=== PATIENT | male | born 1955 | race Caucasian/White ===

== ENCOUNTER 2024-12-31 05:56 | Inpatient (IN) | payer MEDICARE, OTHER ==
[~2024-12-31] VITALS: Ht 170.2 cm; Wt 89.4 kg
[2024-12-31] MEDS ORDERED: ANESTHESIA TRAY IN PYXIS 1 EA TRAY MC ONE (06:58)
[2024-12-31] MEDS ORDERED: dexaMETHasone SOD PHOSPHATE 1 ML ONE (06:58)
[2024-12-31] MEDS ORDERED: VANCOMYCIN 1 GM VIAL ONE (06:58)
[2024-12-31] MEDS ORDERED: LIDOCAINE 2%-EPI 1:100,000 30 ML VIAL ONE ×2 (06:58→09:26)
[2024-12-31] MEDS ORDERED: FENTANYL PF 250MCG/5ML AMPUL ONE (07:13)
[2024-12-31] MEDS ORDERED: ROCURONIUM BROMIDE 50 MG/5 ML ONE (07:14)
[2024-12-31] MEDS ORDERED: OXYMETAZOLINE HCL NASAL SPRAY 30 ML BOTTLE NS ONE (07:20)
[2024-12-31] MEDS ORDERED: LABETALOL HCL IV 100MG VIAL ONE (08:10)
[2024-12-31] MEDS ORDERED: SEVOFLURANE 250 ML BOTTLE IH ONE (08:48)
[2024-12-31] MEDS ORDERED: ONDANSETRON HCL/PF 4 MG/2 ML VIAL IV PRN (11:00)
[2024-12-31] MEDS ORDERED: ROSU20TA2 PO (11:27)
[2024-12-31] MEDS ORDERED: METF-440 PO (11:27)
[2024-12-31] MEDS ORDERED: DRON400T6 PO (11:27)
[2024-12-31] MEDS ORDERED: ASPI-1169 PO (11:27)
[2024-12-31] MEDS ORDERED: FINA5TAB11 PO (11:27)
[2024-12-31] MEDS ORDERED: SACU1TAB PO (11:27)
[2024-12-31] MEDS ORDERED: TAMS-12 PO (11:27)
[2024-12-31] MEDS ORDERED: AMLO5TAB4 PO (11:27)
[2024-12-31] MEDS ORDERED: CARV25TA PO (11:27)
[2024-12-31] MEDS ORDERED: ICOS1CAP PO (11:27)
[2024-12-31] MEDS ORDERED: KETOROLAC TROMETHAMINE INJ 30 MG/ML VIAL IM PRN (11:30)
[2024-12-31] MEDS: IV NS 0.9% 1,000 ML IV PRN (11:36)
[2024-12-31] MEDS ORDERED: MAG HYDROX/AL HYDROX/SIMETH 30 ML UDC PO PRN (16:00)
[2024-12-31] MEDS ORDERED: ONDANSETRON HCL/PF 4 MG/2 ML VIAL IVP PRN (16:00)
[2024-12-31] MEDS ORDERED: Z GUARD REMEDY 4 OZ OINT TP PRN (16:00)
[2024-12-31] MEDS ORDERED: DEXTROSE 50%-WATER 50 ML DISP.SYRIN IV PRN (16:00)
[2024-12-31] MEDS ORDERED: MAGNESIUM HYDROXIDE 30 ML UDC PO PRN (16:00)
[2024-12-31] MEDS: ACETAMINOPHEN 325 MG TABLET PO PRN (16:38)
[2024-12-31] MEDS: BLOOD SUGAR DIAGNOSTIC 1 EACH STRIP IN SCH (16:58)
[2024-12-31 16:59] VITALS: BP 124/74; TEMP 99; O2SAT 97
[2024-12-31] MEDS: INSULIN REGULAR, HUMAN 100 UNIT/ML 3 ML VIAL SQ PRN (16:59)
[2024-12-31] MEDS: AMLODIPINE BESYLATE 5 MG TABLET PO SCH (17:00)
[2024-12-31] MEDS: CARVEDILOL 12.5 MG TABLET PO SCH (17:00)
[2024-12-31] MEDS: ATORVASTATIN 40 MG TABLET PO SCH (17:04)
[2024-12-31] MEDS: SACUBITRIL/VALSARTAN 24/26MG TABLET PO SCH (17:04)
[2024-12-31] MEDS: TAMSULOSIN 0.4 MG CAP.SR.24H PO SCH (17:04)
[2024-12-31] MEDS ORDERED: Medication Not On Formulary EA (Icosapent Ethyl (Vascepa) 1 GM) PO SCH (18:00)
[2024-12-31] MEDS: VANCOMYCIN 1 GM in IV D5W 250ml IV SCH (19:34)
[2024-12-31 20:00] VITALS: BP 127/69; TEMP 98.4; O2SAT 95
[2024-12-31 22:35] VITALS: BP 127/69; TEMP 98.4; O2SAT 95
[2025-01-01 08:00] VITALS: BP 120/65; TEMP 97.7; O2SAT 97
[2025-01-01 08:03] LABS: MAGNESIUM 1.7 mg/dL (1.8-2.4); PHOSPHORUS 2.8 mg/dL (2.5-4.9)
[2025-01-01 08:19] VITALS: BP 120/65
[2025-01-01] MEDS: FINASTERIDE (5 MG) 5 MG TABLET PO SCH (08:19)
[2025-01-01] MEDS: DRONEDARONE HYDROCHLORIDE 400 MG TABLET PO SCH (08:25)
== END 2025-01-01 12:53 | disposition home or self-care (01) | DRG 908 ==
LOC: DS 05:56 → MED 10:49
PROC: 0NSR04Z Reposition Maxilla with Internal Fixation Device, Open Approach (ICD-10-PCS; principal; 2024-12-31)
PROC: 0NSV04Z Reposition Left Mandible with Internal Fixation Device, Open Approach (ICD-10-PCS; 2024-12-31)
PROC: 0NST04Z Reposition Right Mandible with Internal Fixation Device, Open Approach (ICD-10-PCS; 2024-12-31)
PROC: 0NUR07Z Supplement Maxilla with Autologous Tissue Substitute, Open Approach (ICD-10-PCS; 2024-12-31)
PROC: 0N5V0ZZ Destruction of Left Mandible, Open Approach (ICD-10-PCS; 2024-12-31)
PROC: 0N5R0ZZ Destruction of Maxilla, Open Approach (ICD-10-PCS; 2024-12-31)
PROC: 0N5T0ZZ Destruction of Right Mandible, Open Approach (ICD-10-PCS; 2024-12-31)
PROC: 09BQ0ZZ Excision of Right Maxillary Sinus, Open Approach (ICD-10-PCS; 2024-12-31)
PROC: 0CBG0ZZ Excision of Right Submaxillary Gland, Open Approach (ICD-10-PCS; 2024-12-31)
DX: T86.831 Bone graft failure (principal); S02.40CK Maxillary fracture, right side, subsequent encounter for fracture with nonunion; S02.40DK Maxillary fracture, left side, subsequent encounter for fracture with nonunion; S02.609K Fracture of mandible, unspecified, subsequent encounter for fracture with nonunion; M27.2 Inflammatory conditions of jaws; Y92.9 Unspecified place or not applicable; Y83.2 Surgical operation with anastomosis, bypass or graft as the cause of abnormal reaction of the patient, or of later complication, without mention of misadventure at the time of the procedure; X58.XXXD Exposure to other specified factors, subsequent encounter; D16.4 Benign neoplasm of bones of skull and face; D16.5 Benign neoplasm of lower jaw bone; M27.40 Unspecified cyst of jaw; D11.7 Benign neoplasm of other major salivary glands; E11.69 Type 2 diabetes mellitus with other specified complication; I48.91 Unspecified atrial fibrillation; I50.9 Heart failure, unspecified; Z79.82 Long term (current) use of aspirin; Z79.84 Long term (current) use of oral hypoglycemic drugs; Z79.899 Other long term (current) drug therapy; Z88.0 Allergy status to penicillin; Z88.5 Allergy status to narcotic agent; Z88.6 Allergy status to analgesic agent; Z95.810 Presence of automatic (implantable) cardiac defibrillator
CPT/HCPCS: 36415; 82962-TC; 83735-TC; 84100-TC; 87081-TC; 88305-TC; 88311-TC; A4223; A4338; C1713; G0378; J0360; J0461; J1100; J1815; J2704; J3010; J3370; J3490; J7030; J7060

== ENCOUNTER 2025-04-28 08:26 | Inpatient (IN) | payer MEDICARE, OTHER ==
[~2025-04-28] VITALS: Ht 172.7 cm; Wt 88.5 kg
[~2025-04-28 08:26] MED LIST: AMLO5TAB4 PO; ASPI-1169 PO; CARV25TA PO; DRON400T6 PO; FINA5TAB11 PO; ICOS1CAP PO; METF-440 PO; ROSU20TA2 PO; SACU1TAB PO; TAMS-12 PO
[2025-04-28] MEDS ORDERED: dexaMETHasone SOD PHOSPHATE 1 ML ONE (12:30)
[2025-04-28] MEDS ORDERED: LIDOCAINE 2%-EPI 1:100,000 30 ML VIAL ONE (12:30)
[2025-04-28] MEDS ORDERED: VANCOMYCIN 1 GM VIAL ONE (12:30)
[2025-04-28] MEDS ORDERED: ROCURONIUM BROMIDE 50 MG/5 ML ONE (12:58)
[2025-04-28] MEDS ORDERED: FENTANYL PF 250MCG/5ML AMPUL ONE (12:58)
[2025-04-28] MEDS ORDERED: ZOLPIDEM TARTRATE 5 MG TABLET PO PRN (14:30)
[2025-04-28] MEDS ORDERED: MAG HYDROX/AL HYDROX/SIMETH 30 ML UDC PO PRN (14:30)
[2025-04-28] MEDS ORDERED: ACETAMINOPHEN 325 MG TABLET PO PRN (14:30)
[2025-04-28] MEDS ORDERED: ONDANSETRON HCL/PF 4 MG/2 ML VIAL IVP PRN ×3 (14:30→15:00)
[2025-04-28] MEDS ORDERED: Z GUARD REMEDY 4 OZ OINT TP PRN (14:30)
[2025-04-28] MEDS ORDERED: MAGNESIUM HYDROXIDE 30 ML UDC PO PRN (14:30)
[2025-04-28] MEDS ORDERED: HYDROCODONE/APAP 10/325MG TABLET PO PRN (14:30)
[2025-04-28] MEDS ORDERED: IV NS 0.9% 1,000 ML IV PRN ×2 (14:30)
[2025-04-28] MEDS ORDERED: DEXTROSE 50%-WATER 50 ML DISP.SYRIN IV PRN (15:00)
[2025-04-28] MEDS ORDERED: IBUPROFEN 400 MG TABLET PO PRN (15:30)
[2025-04-28 16:00] VITALS: BP 133/81; TEMP 97.5; TEMP 98.7; O2SAT 97; O2SAT 98
[2025-04-28 17:10] LABS: CALCIUM, SERUM 8.3 mg/dL (8.5-10.1); POTASSIUM 3.8 mmol/L (3.5-5.1)
[2025-04-28] MEDS: TAMSULOSIN 0.4 MG CAP.SR.24H PO SCH (17:43)
[2025-04-28] MEDS: AMLODIPINE BESYLATE 5 MG TABLET PO SCH (17:43)
[2025-04-28] MEDS: CARVEDILOL 12.5 MG TABLET PO SCH (17:43)
[2025-04-28] MEDS: SACUBITRIL/VALSARTAN 24/26MG TABLET PO SCH (17:44)
[2025-04-28] MEDS: BLOOD SUGAR DIAGNOSTIC 1 EACH STRIP IN SCH (17:44)
[2025-04-28] MEDS: ATORVASTATIN 40 MG TABLET PO SCH (17:44)
[2025-04-28] MEDS ORDERED: Medication Not On Formulary EA (Icosapent Ethyl (Vascepa) 1 GM) PO SCH (18:00)
[2025-04-28] MEDS: METFORMIN 500 MG TABLET PO SCH (19:49)
[2025-04-28 20:00] VITALS: BP 130/78; TEMP 97.5; O2SAT 96
[2025-04-28] MEDS: INSULIN REGULAR, HUMAN 100 UNIT/ML 3 ML VIAL SQ PRN (21:22)
[2025-04-28] MEDS: VANCOMYCIN 1 GM in IV D5W 250ml IV SCH (23:07)
[2025-04-29 07:00] VITALS: BP 113/73; TEMP 98.4; O2SAT 97
[2025-04-29] MEDS: ASPIRIN 81 MG TAB.CHEW PO SCH (08:31)
[2025-04-29] MEDS: FINASTERIDE (5 MG) 5 MG TABLET PO SCH (08:31)
[2025-04-29 08:37] VITALS: BP 113/73
[2025-04-29] MEDS: DRONEDARONE HYDROCHLORIDE 400 MG TABLET PO SCH (09:00)
[2025-04-29] MEDS ORDERED: IBUP-1953 PO (12:06)
== END 2025-04-29 13:40 | disposition home or self-care (01) | DRG 496 ==
LOC: DS 08:26 → MED 14:03
PROVIDERS: ADMIT Nurse Practitioner Acute Care; ATTEND Nurse Practitioner Acute Care
PROC: 0N5V0ZZ Destruction of Left Mandible, Open Approach (ICD-10-PCS; principal; 2025-04-28 11:45)
PROC: 0NPW04Z Removal of Internal Fixation Device from Facial Bone, Open Approach (ICD-10-PCS; principal; 2025-04-28 11:45)
PROC: 0WB30ZZ Excision of Oral Cavity and Throat, Open Approach (ICD-10-PCS; principal; 2025-04-28 11:45)
PROC: 0N5T0ZZ Destruction of Right Mandible, Open Approach (ICD-10-PCS; principal; 2025-04-28 11:45)
PROC: 0N5R0ZZ Destruction of Maxilla, Open Approach (ICD-10-PCS; principal; 2025-04-28 11:45)
DX: T84.69XA Infection and inflammatory reaction due to internal fixation device of other site, initial encounter (principal); I48.20 Chronic atrial fibrillation, unspecified; I50.22 Chronic systolic (congestive) heart failure; I11.0 Hypertensive heart disease with heart failure; E11.9 Type 2 diabetes mellitus without complications; Y79.1 Therapeutic (nonsurgical) and rehabilitative orthopedic devices associated with adverse incidents; Y92.89 Other specified places as the place of occurrence of the external cause; K12.30 Oral mucositis (ulcerative), unspecified; K09.9 Cyst of oral region, unspecified; M89.38 Hypertrophy of bone, other site; D16.4 Benign neoplasm of bones of skull and face; D16.5 Benign neoplasm of lower jaw bone; Z95.810 Presence of automatic (implantable) cardiac defibrillator; Z88.6 Allergy status to analgesic agent; Z88.5 Allergy status to narcotic agent
CPT/HCPCS: 36415; 80048-TC; 82962-TC; 88300-TC; 88305-TC; 88311-TC; A4223; G0378; J0690; J1100; J1815; J2704; J3010; J3370; J3490; J7030; J7050; J7060